=== PATIENT | female | born 1955 | race Caucasian/White ===

== ENCOUNTER 2022-04-10 16:03 | Emergency (ER) | payer MEDICARE, OTHER ==
[~2022-04-10 16:03] MED LIST: BASAGLAR K100 UNIT/1 SQ; BAYER CHEWABLE81 MG GT; BUSPAR 10MG10 MG GT; CYANOCOBAL1000 MCG/1 INJ; ELIQUIS 5 MG TAB5 MG GT; FERROUS SU220 MG/5 M GT; GABAPENTIN250 MG/5 M GT; GLYCOPYRROLATE2 MG GT; HYGROTON TAB 2525 MG GT; K-DUR TAB 20 M20 MEQ PO; KEFLEX500 MG PO; LIPITOR40 MG GT; PEPTAMEN GT; SINGULAIR10 MG GT; SYNTHROID25 MCG GT; TRUBIOTICS GT
[2022-04-10] MEDS ORDERED: XYLOCAINE VISC100 ML PO (18:22)
== END 2022-04-10 18:32 | disposition home or self-care (01) ==
LOC: ER1 16:03
DX: R07.0 Pain in throat (principal); K21.9 Gastro-esophageal reflux disease without esophagitis; Z88.1 Allergy status to other antibiotic agents
CPT/HCPCS: 87081; 87880; 99283

== ENCOUNTER 2022-04-22 03:16 | Emergency (ER) | payer MEDICARE, OTHER ==
[~2022-04-22 03:16] MED LIST changes: +XYLOCAINE VISC100 ML PO
[2022-04-22 04:17] LABS: HEMOGLOBIN 10.3 gm/dl (12.3-15.3); RED BLOOD COUNT 3.47 M/UL (4.00-5.10); WHITE BLOOD COUNT 10.6 K/UL (4.5-11.0)
[2022-04-22 04:51] LABS: BUN/CREATININE RATIO 27 (0-10)
[2022-04-22] MEDS ORDERED: TORADOL 10 MG T10 MG PO (09:03)
[2022-04-22] MEDS ORDERED: VIBRAMYCIN100 MG PO (09:03)
== END 2022-04-22 09:28 | disposition home or self-care (01) ==
LOC: ER1 03:16
PROVIDERS: Physician Assistant
DX: N20.1 Calculus of ureter (principal); J18.9 Pneumonia, unspecified organism; J98.59 Other diseases of mediastinum, not elsewhere classified
CPT/HCPCS: 71045; 80053; 81001; 82150; 83690; 85025; 87086; 96374; 96375; 99284; J1885; J2405; Q9967

== ENCOUNTER 2022-07-20 16:36 | Emergency (ER) | payer MEDICARE, OTHER ==
[~2022-07-20 16:36] MED LIST changes: +TORADOL 10 MG T10 MG PO; +VIBRAMYCIN100 MG PO
== END 2022-07-20 17:53 | disposition left against medical advice (07) ==
LOC: ER1 16:36
DX: Z53.21 Procedure and treatment not carried out due to patient leaving prior to being seen by health care provider (principal)